=== PATIENT | male | born 1950 | race Hispanic/Latino ===

== ENCOUNTER 2022-07-02 16:43 | Emergency (ER) | payer MEDICARE, OTHER ==
[~2022-07-02] VITALS: Ht 172.7 cm; Wt 83.9 kg
[~2022-07-02 16:43] MED LIST: AMLODIPINE BESY10 MG PO; ARICEPT5 MG PO; ATORVASTATIN CA40 MG PO; CARVEDILOL3.125 MG PO; CETIRIZINE HCL10 MG PEG; COREG3.125 MG PO; CYMBALTA30 MG PO; ETOMIDATE 2 MG/ML 10 ML INJ IV ONE; FINASTERIDE5 MG PO; GLIMEPIRIDE2 MG PO; LEVOFLOXACIN500 MG PO; LISINOPRIL10 MG PO; LOSARTAN POTASS50 MG PO; METFORMIN HCL500 MG PO; NORCO 10-325 T1 EACH PO; NORVASC5 MG PO; NOVOLIN 70100 UNITS/ SQ; NOVOLOG100 UNITS1; OMEPRAZOLE40 MG PO; PRAVASTATIN SOD10 MG PO; PROMETHAZINE HC25 M1 PO; SYMBICORT 16010.2 GM INH; TAMSULOSIN HCL0.4 MG PO; TOUJEO 300 UNITS/ML; ZOFRAN ODT4 MG PO
[2022-07-02] MEDS ORDERED: HYDRALAZINE HCL 20 MG/ML VIAL IV PRN (16:45)
[2022-07-02] MEDS ORDERED: NICARDIPINE 20MG/200ML PREMIX 200 ML ONE (17:29)
[2022-07-02] MEDS ORDERED: ROCURONIUM BROMIDE 1 ML IV ONE ×2 (17:29→17:34)
[2022-07-02] MEDS ORDERED: MANNITOL 25% 12.5GM/50 ML VIAL IV PRN (17:30)
[2022-07-02 17:42] LABS: BASOPHILS # (AUTO) 0.1 (0.0-0.1); BASOPHILS % 0.5 % (0.0-1.0); EOSINOPHILS # (AUTO) 0.8 (0.0-0.4); EOSINOPHILS % 4.2 % (0.0-6.0); HEMATOCRIT 44.9 % (38.2-49.6); HEMOGLOBIN 14.6 g/dL (14.0-18.0); LYMPHOCYTES # (AUTO) 3.8 (1.0-3.2); LYMPHOCYTES % 19.9 % (18.0-39.1); MEAN CORPUSCULAR HEMOGLOBIN 28.5 pg (28-32); MEAN CORPUSCULAR HGB CONC 32.5 g/dL (31-35); MEAN CORPUSCULAR VOLUME 87.5 fL (81-99); MONOCYTES # (AUTO) 1.3 (0.2-0.8); NEUTROPHILS # (AUTO) 12.8 (2.1-6.9); NEUTROPHILS % 67.7 % (38.7-80.0); PLATELET COUNT 310 x10e3/uL (140-360); RED BLOOD COUNT 5.13 x10e6/uL (4.3-5.7)
[2022-07-02] MEDS ORDERED: MANNITOL 20% 500ML 500 ML IV ONE ×2 (17:45→18:30)
[2022-07-02] MEDS ORDERED: NICARDIPINE 20MG/200ML PREMIX 200 ML IV SCH (17:45)
[2022-07-02 17:54] LABS: ALBUMIN 3.8 g/dL (3.5-5.0); ANION GAP 16.4 mmol/L (8-16); CALCIUM 9.4 mg/dL (8.4-10.2); CREATININE, SERUM 1.89 mg/dL (0.72-1.25); POTASSIUM 4.4 mmol/L (3.5-5.1)
[2022-07-02 18:08] LABS: CREATINE KINASE MB 1.7 ng/mL (0-5.0)
[2022-07-02 18:31] LABS: ABG PCO2 49 mmHg (35-45); ABG PH 7.33 (7.35-7.45)
[2022-07-02 18:32] LABS: ABG HCO3 26 mmol/L (22-26); ABG PO2 443 mmHg (80-105); ABG TCO2 27
[2022-07-02] MEDS ORDERED: MANNITOL 20% 500ML 500 ML IV SCH (19:00)
[2022-07-02] MEDS ORDERED: ETOMIDATE 2 MG/ML 10 ML INJ IV STA (19:07)
[2022-07-02] MEDS ORDERED: ROCURONIUM BROMIDE 10 MG/ML 5ML VIAL IV ONE (19:15)
[2022-07-02] MEDS ORDERED: LIDOCAINE HCL 2% 100 MG/5 ML IV ONE (19:15)
== END 2022-07-02 19:20 | disposition other institution (70) ==
LOC: ER 16:46
DX: I60.9 Nontraumatic subarachnoid hemorrhage, unspecified (principal); I10 Essential (primary) hypertension; R51.9 Headache, unspecified; R53.1 Weakness; E78.5 Hyperlipidemia, unspecified; K21.9 Gastro-esophageal reflux disease without esophagitis; I25.10 Atherosclerotic heart disease of native coronary artery without angina pectoris; Z95.1 Presence of aortocoronary bypass graft
CPT/HCPCS: 31500; 36415; 36600; 51700; 70450; 71045; 80053; 82550; 82553; 82805; 82948; 84484; 85025; 93005; 94003; 99285

== ENCOUNTER 2022-08-06 15:44 | Observation (INO) | payer MEDICARE ==
[~2022-08-06] VITALS: Ht 175.3 cm; Wt 81.2 kg
[~2022-08-06 15:44] MED LIST changes: -ETOMIDATE 2 MG/ML 10 ML INJ IV ONE
[2022-08-06] MEDS ORDERED: ONDANSETRON HCL INJ 2MG/ML 2ML 2 MG/ML VIAL IV STA (16:11)
[2022-08-06] MEDS ORDERED: FAMOTIDINE 20 MG/2 ML VIAL IV STA (16:11)
[2022-08-06 16:22] LABS: BASOPHILS % 0.2 % (0.0-1.0); EOSINOPHILS # (AUTO) 0.1 (0.0-0.4); EOSINOPHILS % 1.3 % (0.0-6.0); HEMATOCRIT 38.8 % (38.2-49.6); HEMOGLOBIN 13.2 g/dL (14.0-18.0); LYMPHOCYTES # (AUTO) 2.3 (1.0-3.2); MEAN CORPUSCULAR HEMOGLOBIN 29.9 pg (28-32); MEAN CORPUSCULAR VOLUME 87.8 fL (81-99); MONOCYTES % 9.6 % (4.4-11.3); NEUTROPHILS # (AUTO) 7.4 (2.1-6.9); NEUTROPHILS % 67.5 % (38.7-80.0); PLATELET COUNT 157 x10e3/uL (140-360); RED BLOOD COUNT 4.42 x10e6/uL (4.3-5.7)
[2022-08-06] MEDS ORDERED: SODIUM CHLORIDE 0.9% 1000ML 1,000 ML ONE (16:34)
[2022-08-06 16:35] LABS: INR 1.21; PROTHROMBIN TIME 15.8 seconds (11.9-14.5)
[2022-08-06 16:36] LABS: PARTIAL THROMBOPLASTIN TIME 37.8 seconds (23.8-35.5)
[2022-08-06 16:44] LABS: ALANINE AMINOTRANSFERASE 14 IU/L (0-55); ALBUMIN 3.5 g/dL (3.5-5.0); ALBUMIN/GLOBULIN RATIO 1.1 (0.8-2.0); ALKALINE PHOSPHATASE 118 IU/L (40-150); ANION GAP 14.8 mmol/L (8-16); BLOOD UREA NITROGEN 20 mg/dL (7-26); BUN/CREATININE RATIO 13 (6-25); CARBON DIOXIDE 21 mmol/L (22-29); CHLORIDE 106 mmol/L (98-107); CREATINE KINASE 49 IU/L (30-200); GLUCOSE 118 mg/dL (74-118); LIPASE 13 U/L (8-78); POTASSIUM 3.8 mmol/L (3.5-5.1); SODIUM 138 mmol/L (136-145)
[2022-08-06] MEDS ORDERED: SODIUM CHLORIDE 0.9% 1000ML 1,000 ML IV ONE (16:45)
[2022-08-06] MEDS ORDERED: ACETAMINOPHEN 325 MG TAB PO ONE (16:45)
[2022-08-06 17:25] LABS: CLARITY,URINE CLOUDY (CLEAR); COLOR,URINE YELLOW (YELLOW); KETONES,URINE NEGATIVE (NEGATIVE); LEUKOCYTE ESTERASE ,URINE SMALL (NEGATIVE); NITRITE,URINE POSITIVE (NEGATIVE); PROTEIN,URINE DIPSTICK 2+ (NEGATIVE); URINE UROBILINOGEN 1 mg/dL (0.2 - 1)
[2022-08-06] MEDS ORDERED: ONDANSETRON HCL INJ 2MG/ML 2ML 2 MG/ML VIAL IV PRN (17:30)
[2022-08-06] MEDS ORDERED: Morphine 2mg Syringe 2 MG/ML SYR IV PRN (17:30)
[2022-08-06 17:36] LABS: BACTERIA,URINE MANY /HPF
[2022-08-06 17:39] VITALS: PULSE 82; RESP 20; O2SAT 95
[2022-08-06] MEDS: SODIUM CHLORIDE 0.9% 1000ML 1,000 ML IV SCH (18:52)
[2022-08-06] MEDS ORDERED: CLONIDINE HCL 0.2 MG TAB PO ONE (19:15)
[2022-08-06 19:20] VITALS: PULSE 55; RESP 16; O2SAT 99
[2022-08-06] MEDS ORDERED: CARVEDILOL25 MG PO (20:13)
[2022-08-06] MEDS ORDERED: MELATONIN3 MG PO (20:13)
[2022-08-06] MEDS ORDERED: ARICEPT5 MG PO (20:13)
[2022-08-06] MEDS ORDERED: FINASTERIDE5 MG PO (20:13)
[2022-08-06] MEDS ORDERED: CLONIDINE HCL0.1 MG PO (20:13)
[2022-08-06] MEDS ORDERED: CARBIDOPA-LEVO1 EAC1 PO (20:13)
[2022-08-06] MEDS ORDERED: SENNA8.6 MG PO (20:13)
[2022-08-06] MEDS ORDERED: HYDRALAZINE HC100 MG PO (20:13)
[2022-08-06] MEDS ORDERED: DOCUSATE SODIU100 MG PO (20:13)
[2022-08-06] MEDS ORDERED: LOSARTAN POTASS25 MG PO (20:13)
[2022-08-06 21:00] VITALS: BP 167/51; PULSE 51; RESP 18; TEMP 98; O2SAT 98
[2022-08-06 21:14] VITALS: BP 167/51; PULSE 51; RESP 18; TEMP 98; O2SAT 98
[2022-08-07] VITALS (8 sets, daily range): BP systolic 136–178; BP diastolic 46–77; PULSE 54–71; RESP 16–18; TEMP 97.2–98.8; O2SAT 98–100
[2022-08-07] MEDS ORDERED: MAGNESIUM/ALUMINUM/SIMETHICONE 30 ML UDC PO PRN (04:15)
[2022-08-07] MEDS ORDERED: DEXTROSE 50% SYRINGE 50 ML IV PRN (04:15)
[2022-08-07] MEDS ORDERED: HYDRALAZINE HCL 20 MG/ML VIAL IV PRN (04:15)
[2022-08-07] MEDS ORDERED: MELATONIN 3 MG TAB PO PRN (04:15)
[2022-08-07] MEDS ORDERED: GUAIFENESIN/DEXTROMETHORPHAN LIQD 5 ML UDC PO PRN (04:15)
[2022-08-07] MEDS ORDERED: ACETAMINOPHEN 325 MG TAB PO PRN (04:15)
[2022-08-07] MEDS ORDERED: Morphine 2mg Syringe 2 MG/ML SYR IV PRN (04:15)
[2022-08-07] MEDS ORDERED: INSULIN GLARGINE 100 UNITS/ML VIAL SQ ONE (04:15)
[2022-08-07 04:55] LABS: BASOPHILS % 0.4 % (0.0-1.0); EOSINOPHILS # (AUTO) 0.2 (0.0-0.4); EOSINOPHILS % 2.2 % (0.0-6.0); HEMATOCRIT 35.1 % (38.2-49.6); HEMOGLOBIN 11.7 g/dL (14.0-18.0); LYMPHOCYTES # (AUTO) 3.1 (1.0-3.2); LYMPHOCYTES % 29.1 % (18.0-39.1); MEAN CORPUSCULAR HEMOGLOBIN 29.7 pg (28-32); MEAN CORPUSCULAR HGB CONC 33.3 g/dL (31-35); MEAN CORPUSCULAR VOLUME 89.1 fL (81-99); MONOCYTES # (AUTO) 1.1 (0.2-0.8); MONOCYTES % 10.6 % (4.4-11.3); NEUTROPHILS # (AUTO) 6.1 (2.1-6.9); NEUTROPHILS % 57.4 % (38.7-80.0); PLATELET COUNT 155 x10e3/uL (140-360); RED BLOOD COUNT 3.94 x10e6/uL (4.3-5.7); RED CELL DISTRIBUTION WIDTH 16.4 % (11.7-14.4)
[2022-08-07 05:19] LABS: ANION GAP 11.4 mmol/L (8-16); CALCIUM 8.2 mg/dL (8.4-10.2); CREATININE, SERUM 1.25 mg/dL (0.72-1.25); POTASSIUM 3.4 mmol/L (3.5-5.1)
[2022-08-07] MEDS: HYDRALAZINE HCL 100 MG TABLET PO SCH ×3 (05:34→21:24)
[2022-08-07] MEDS: SODIUM CHLORIDE 0.9% 1000ML 1,000 ML IV SCH ×2 (05:35→14:07)
[2022-08-07] MEDS: INSULIN REGULAR, HUMAN 100 UNIT/1 ML SQ SCH ×4 (07:30→21:42)
[2022-08-07] MEDS: MULTIVITAMINS/MINERALS TAB PO SCH (08:54)
[2022-08-07] MEDS: CARBIDOPA/LEVODOPA 25/100 TAB PO SCH ×3 (08:54→21:25)
[2022-08-07] MEDS: DONEPEZIL HCL 5 MG TAB PO SCH (08:54)
[2022-08-07] MEDS: LOSARTAN POTASSIUM 100 MG TAB PO SCH (08:54)
[2022-08-07] MEDS: FINASTERIDE 5 MG TAB PO SCH (08:54)
[2022-08-07] MEDS: TAMSULOSIN HCL 0.4 MG CAP PO SCH (08:54)
[2022-08-07] MEDS: SENNOSIDES 8.6 MG TAB PO SCH (08:55)
[2022-08-07] MEDS: AMLODIPINE BESYLATE 10 MG TAB PO SCH (08:55)
[2022-08-07] MEDS: CARVEDILOL 12.5 MG TAB PO SCH ×2 (08:55→17:10)
[2022-08-07] MEDS: DOCUSATE SODIUM 100 MG CAP PO SCH ×2 (08:56→17:00)
[2022-08-07] MEDS: CLONIDINE HCL 0.1 MG TAB PO SCH ×2 (11:23→17:09)
[2022-08-07] MEDS ORDERED: ATORVASTATIN 40 MG TAB PO SCH (21:00)
[2022-08-07] MEDS ORDERED: MELATONIN 3 MG TAB PO SCH (21:00)
[2022-08-07] MEDS ORDERED: INSULIN GLARGINE 100 UNITS/ML VIAL SQ SCH (21:00)
[2022-08-08 01:18] VITALS: BP 141/48; PULSE 60; RESP 20; TEMP 97.4; O2SAT 100
[2022-08-08] MEDS: SODIUM CHLORIDE 0.9% 1000ML 1,000 ML IV SCH ×3 (01:30→12:07)
[2022-08-08 05:29] VITALS: BP 166/61; PULSE 58; RESP 20; TEMP 97.3; O2SAT 97
[2022-08-08] MEDS: HYDRALAZINE HCL 100 MG TABLET PO SCH ×2 (06:00→14:29)
[2022-08-08 06:50] LABS: ANION GAP 12.1 mmol/L (8-16); CALCIUM 8.1 mg/dL (8.4-10.2); CREATININE, SERUM 1.13 mg/dL (0.72-1.25); MAGNESIUM 1.6 MG/DL (1.3-2.1); POTASSIUM 3.1 mmol/L (3.5-5.1)
[2022-08-08 07:12] LABS: THYROID STIMULATING HORMONE 0.301 uIU/mL (0.350-4.940)
[2022-08-08] MEDS: INSULIN REGULAR, HUMAN 100 UNIT/1 ML SQ SCH ×3 (07:30→16:30)
[2022-08-08 08:12] VITALS: BP 177/65; PULSE 63; RESP 18; TEMP 97.6; O2SAT 100
[2022-08-08] MEDS: DONEPEZIL HCL 5 MG TAB PO SCH (08:58)
[2022-08-08] MEDS: AMLODIPINE BESYLATE 10 MG TAB PO SCH (08:58)
[2022-08-08] MEDS: TAMSULOSIN HCL 0.4 MG CAP PO SCH (08:58)
[2022-08-08] MEDS: FINASTERIDE 5 MG TAB PO SCH (08:58)
[2022-08-08] MEDS: CARBIDOPA/LEVODOPA 25/100 TAB PO SCH ×2 (08:59→14:29)
[2022-08-08] MEDS: MULTIVITAMINS/MINERALS TAB PO SCH (08:59)
[2022-08-08] MEDS: LOSARTAN POTASSIUM 100 MG TAB PO SCH (08:59)
[2022-08-08] MEDS: CLONIDINE HCL 0.1 MG TAB PO SCH ×2 (08:59→16:59)
[2022-08-08] MEDS: DOCUSATE SODIUM 100 MG CAP PO SCH ×2 (09:00→17:00)
[2022-08-08] MEDS: CARVEDILOL 12.5 MG TAB PO SCH ×2 (09:00→17:00)
[2022-08-08] MEDS: SENNOSIDES 8.6 MG TAB PO SCH (09:00)
[2022-08-08 09:23] VITALS: BP 177/65; PULSE 63; RESP 18; TEMP 97.6; O2SAT 100
[2022-08-08 12:58] VITALS: BP 165/55; PULSE 61; RESP 18; TEMP 98.6; O2SAT 99
[2022-08-08] MEDS ORDERED: POTASSIUM CHLORIDE 20 MEQ TAB CR PO STA (14:19)
[2022-08-08] MEDS ORDERED: CEFPODOXIME PR200 MG PO (14:25)
[2022-08-08 17:10] VITALS: BP 160/60; PULSE 63; RESP 18; TEMP 98.1; O2SAT 100
== END 2022-08-08 19:47 | disposition home or self-care (01) ==
LOC: ER 15:50 → ERHOLD 17:28 → INTOOBSV 17:28 → MED/SURG3 20:44
PROVIDERS: ADMIT Internal Medicine; ATTEND Internal Medicine
DX: N39.0 Urinary tract infection, site not specified (principal); B96.1 Klebsiella pneumoniae [K. pneumoniae] as the cause of diseases classified elsewhere; K52.9 Noninfective gastroenteritis and colitis, unspecified; R53.81 Other malaise; N17.9 Acute kidney failure, unspecified; I10 Essential (primary) hypertension; E78.5 Hyperlipidemia, unspecified; K21.9 Gastro-esophageal reflux disease without esophagitis; G20 Parkinson's disease; F02.80 Dementia in other diseases classified elsewhere, unspecified severity, without behavioral disturbance, psychotic disturbance, mood disturbance, and anxiety; I25.10 Atherosclerotic heart disease of native coronary artery without angina pectoris; Z95.1 Presence of aortocoronary bypass graft
CPT/HCPCS: 0223U; 36415 ×3; 51700; 71045 ×2; 80048 ×2; 80053; 81001; 82550 ×2; 82553 ×2; 82948 ×2; 83690; 83735; 83880; 84443; 84484 ×2; 85025 ×2; 85610; 85730; 87040; 87086; 87186; 93005; 94799 ×2; 97116; 97162; 97530; 99284; G0378 ×3; J0696 ×3; J2405 ×2; J7030 ×3

== ENCOUNTER 2022-08-16 19:27 | Emergency (ER) | payer MEDICARE ==
[~2022-08-16] VITALS: Ht 175.3 cm; Wt 81.2 kg
[~2022-08-16 19:27] MED LIST changes: +CARBIDOPA-LEVO1 EAC1 PO; +CARVEDILOL25 MG PO; +CEFPODOXIME PR200 MG PO; +CLONIDINE HCL0.1 MG PO; +DOCUSATE SODIU100 MG PO; +HYDRALAZINE HC100 MG PO; +LOSARTAN POTASS25 MG PO; +MELATONIN3 MG PO; +SENNA8.6 MG PO
[2022-08-16] MEDS ORDERED: ONDANSETRON HCL 4 MG ORAL DISINTEGRATING TAB PO ONE (19:45)
[2022-08-16] MEDS ORDERED: ONDANSETRON HCL INJ 2MG/ML 2ML 2 MG/ML VIAL IV STA (20:04)
[2022-08-16] MEDS ORDERED: SODIUM CHLORIDE 0.9% 1000ML 1,000 ML IV ONE (20:15)
[2022-08-16 20:26] LABS: BASOPHILS % 0.5 % (0.0-1.0); EOSINOPHILS # (AUTO) 0.2 (0.0-0.4); EOSINOPHILS % 2.5 % (0.0-6.0); HEMATOCRIT 39.6 % (38.2-49.6); HEMOGLOBIN 13.6 g/dL (14.0-18.0); LYMPHOCYTES # (AUTO) 2.1 (1.0-3.2); LYMPHOCYTES % 26.8 % (18.0-39.1); MEAN CORPUSCULAR HEMOGLOBIN 30.1 pg (28-32); MEAN CORPUSCULAR HGB CONC 34.3 g/dL (31-35); MEAN CORPUSCULAR VOLUME 87.6 fL (81-99); MONOCYTES # (AUTO) 0.7 (0.2-0.8); MONOCYTES % 8.7 % (4.4-11.3); NEUTROPHILS # (AUTO) 4.7 (2.1-6.9); NEUTROPHILS % 60.8 % (38.7-80.0); PLATELET COUNT 231 x10e3/uL (140-360); RED BLOOD COUNT 4.52 x10e6/uL (4.3-5.7); RED CELL DISTRIBUTION WIDTH 16.8 % (11.7-14.4)
[2022-08-16 20:55] LABS: ALBUMIN 3.7 g/dL (3.5-5.0); ALBUMIN/GLOBULIN RATIO 1.1 (0.8-2.0); ANION GAP 13.8 mmol/L (8-16); CALCIUM 9.1 mg/dL (8.4-10.2); CREATININE, SERUM 1.48 mg/dL (0.72-1.25); POTASSIUM 3.8 mmol/L (3.5-5.1)
[2022-08-16 21:01] LABS: CREATINE KINASE MB 10.5 ng/mL (0-5.0)
[2022-08-16] MEDS ORDERED: IOPAMIDOL 370 MG/ML 100 ML INFUS..BTL INJ ONE (21:10)
[2022-08-16] MEDS ORDERED: CLONIDINE HCL 0.1 MG TAB PO ONE (22:00)
[2022-08-16] MEDS ORDERED: HYDRALAZINE HCL 20 MG/ML VIAL IV STA (22:54)
[2022-08-17 00:02] LABS: CLARITY,URINE CLEAR (CLEAR); COLOR,URINE YELLOW (YELLOW); KETONES,URINE TRACE (NEGATIVE); LEUKOCYTE ESTERASE ,URINE NEGATIVE (NEGATIVE); NITRITE,URINE NEGATIVE (NEGATIVE); PROTEIN,URINE DIPSTICK 2+ (NEGATIVE); URINE UROBILINOGEN 1 mg/dL (0.2 - 1)
[2022-08-17 00:05] LABS: AMORPHOUS SEDIMENT,URINE MODERATE (FEW); BACTERIA,URINE FEW /HPF; EPITHELIAL CELLS,URINE RARE /LPF; RBC,URINE 0-5 /HPF (0-5); WBC,URINE (MAN) 0-5 /HPF (0-5)
[2022-08-17] MEDS: NICARDIPINE 20MG/200ML PREMIX 200 ML IV SCH ×2 (01:00→01:29)
[2022-08-17 03:13] VITALS: BP 182/74; PULSE 62; RESP 16; TEMP 98.5; O2SAT 100
== END 2022-08-17 03:05 | disposition other institution (70) ==
LOC: ER 19:33
DX: R11.2 Nausea with vomiting, unspecified (principal); I71.40 Abdominal aortic aneurysm, without rupture, unspecified; I16.1 Hypertensive emergency; I10 Essential (primary) hypertension; Z20.822 Contact with and (suspected) exposure to COVID-19; E11.65 Type 2 diabetes mellitus with hyperglycemia; E78.5 Hyperlipidemia, unspecified; I25.10 Atherosclerotic heart disease of native coronary artery without angina pectoris; K21.9 Gastro-esophageal reflux disease without esophagitis; R94.31 Abnormal electrocardiogram [ECG] [EKG]; Z95.1 Presence of aortocoronary bypass graft
CPT/HCPCS: 36415; 70450; 74177; 80053; 81001; 82550; 82553; 84484; 85025; 93005; 99284; C9113; J0360; J2405; J7030; Q9967; U0002

== ENCOUNTER 2024-05-16 12:03 | Observation (INO) | payer MEDICARE ==
[~2024-05-16] VITALS: Ht 175.3 cm; Wt 90.2 kg
[2024-05-16] MEDS ORDERED: SODIUM CHLORIDE FLUSH 10 ML SYR IV PRN (12:30)
[2024-05-16 12:40] LABS: BASOPHILS # (AUTO) 0.1 (0.0-0.1); BASOPHILS % 0.7 % (0.0-1.0); EOSINOPHILS # (AUTO) 0.3 (0.0-0.4); EOSINOPHILS % 3.4 % (0.0-6.0); HEMATOCRIT 37.9 % (38.2-49.6); LYMPHOCYTES # (AUTO) 1.6 (1.0-3.2); LYMPHOCYTES % 18.4 % (18.0-39.1); MEAN CORPUSCULAR HEMOGLOBIN 34.4 pg (28-32); MEAN CORPUSCULAR HGB CONC 34.3 g/dL (31-35); MEAN CORPUSCULAR VOLUME 100.3 fL (81-99); MONOCYTES # (AUTO) 0.8 (0.2-0.8); NEUTROPHILS # (AUTO) 5.9 (2.1-6.9); NEUTROPHILS % 67.2 % (38.7-80.0); PLATELET COUNT 187 x10e3/uL (140-360); RED BLOOD COUNT 3.78 x10e6/uL (4.3-5.7); RED CELL DISTRIBUTION WIDTH 13.2 % (11.7-14.4); WHITE BLOOD COUNT 8.71 x10e3/uL (4.8-10.8)
[2024-05-16 12:55] LABS: CORONAVIRUS COVID-19 AG NEGATIVE (NEGATIVE); INFLUENZA A AG NEGATIVE (NEGATIVE); INFLUENZA B AG NEGATIVE (NEGATIVE)
[2024-05-16 13:07] LABS: ALBUMIN 3.8 g/dL (3.5-5.0); ALBUMIN/GLOBULIN RATIO 1.2 (0.8-2.0); ANION GAP 14.1 mmol/L (8-16); BILIRUBIN,TOTAL 0.6 mg/dL (0.2-1.2); CALCIUM 8.5 mg/dL (8.4-10.2); CREATININE, SERUM 2.7 mg/dL (0.72-1.25); POTASSIUM 4.1 mmol/L (3.5-5.1); TOTAL PROTEIN 6.9 g/dL (6.5-8.1)
[2024-05-16 13:13] LABS: TROPONIN I 0.005 ng/mL (0-0.300)
[2024-05-16 13:19] LABS: BILIRUBIN,URINE NEGATIVE (NEGATIVE); CLARITY,URINE CLEAR (CLEAR); COLOR,URINE YELLOW (YELLOW); GLUCOSE, URINE 500 (NEGATIVE); KETONES,URINE NEGATIVE (NEGATIVE); LEUKOCYTE ESTERASE ,URINE NEGATIVE (NEGATIVE); NITRITE,URINE NEGATIVE (NEGATIVE); PH,URINE 6 (5 - 7); PROTEIN,URINE DIPSTICK >=300 (NEGATIVE); URINE UROBILINOGEN 0.2 mg/dL (0.2 - 1)
[2024-05-16 13:51] LABS: BACTERIA,URINE FEW /HPF; EPITHELIAL CELLS,URINE FEW /LPF; RBC,URINE 0-5 /HPF (0-5); WBC,URINE (MAN) 0-5 /HPF (0-5)
[2024-05-16] MEDS ORDERED: ONDANSETRON HCL INJ 2MG/ML 2ML 2 MG/ML VIAL IV PRN (15:30)
[2024-05-16] MEDS ORDERED: SODIUM CHLORIDE FLUSH 10 ML SYR INJ PRN (15:30)
[2024-05-16 15:34] VITALS: PULSE 79; RESP 16; TEMP 98.8
[2024-05-16] MEDS: SODIUM CHLORIDE 0.9% 1000ML 1,000 ML IV ONE (15:46)
[2024-05-16] MEDS: METRONIDAZOLE 500MG/NS 100ML 100 ML IV SCH (15:47)
[2024-05-16] MEDS: LEVOFLOXACIN 750MG/D5W 150ML 150 ML IV SCH (15:47)
[2024-05-16 18:11] VITALS: BP 157/83; PULSE 67; RESP 18; TEMP 97.5; O2SAT 97
[2024-05-16 18:17] VITALS: BP 157/83; PULSE 67; RESP 18; TEMP 97.5; O2SAT 97
[2024-05-16 20:00] VITALS: BP 166/69; PULSE 64; RESP 18; TEMP 97.7; O2SAT 99
[2024-05-16 22:00] VITALS: BP 166/69; PULSE 64; RESP 18; TEMP 97.7; O2SAT 99
[2024-05-17] VITALS (9 sets, daily range): BP systolic 150–173; BP diastolic 53–75; PULSE 63–76; RESP 18–20; TEMP 97.3–98.7; O2SAT 98–100
[2024-05-17 05:40] LABS: BASOPHILS % 0.5 % (0.0-1.0); EOSINOPHILS # (AUTO) 0.3 (0.0-0.4); EOSINOPHILS % 3.7 % (0.0-6.0); HEMATOCRIT 34.6 % (38.2-49.6); HEMOGLOBIN 11.8 g/dL (14.0-18.0); LYMPHOCYTES # (AUTO) 1.5 (1.0-3.2); LYMPHOCYTES % 17.6 % (18.0-39.1); MEAN CORPUSCULAR HEMOGLOBIN 34.4 pg (28-32); MEAN CORPUSCULAR HGB CONC 34.1 g/dL (31-35); MEAN CORPUSCULAR VOLUME 100.9 fL (81-99); MONOCYTES # (AUTO) 0.8 (0.2-0.8); MONOCYTES % 9.4 % (4.4-11.3); NEUTROPHILS # (AUTO) 5.8 (2.1-6.9); NEUTROPHILS % 67.6 % (38.7-80.0); PLATELET COUNT 164 x10e3/uL (140-360); RED BLOOD COUNT 3.43 x10e6/uL (4.3-5.7); RED CELL DISTRIBUTION WIDTH 13.2 % (11.7-14.4); WHITE BLOOD COUNT 8.58 x10e3/uL (4.8-10.8)
[2024-05-17 06:04] LABS: ALBUMIN 3.1 g/dL (3.5-5.0); ALBUMIN/GLOBULIN RATIO 1.1 (0.8-2.0); ANION GAP 12.7 mmol/L (8-16); BILIRUBIN,TOTAL 0.5 mg/dL (0.2-1.2); CREATININE, SERUM 2.61 mg/dL (0.72-1.25); POTASSIUM 3.7 mmol/L (3.5-5.1); TOTAL PROTEIN 5.8 g/dL (6.5-8.1)
[2024-05-17] MEDS ORDERED: ASPIRIN81 MG PO (17:58)
[2024-05-17] MEDS ORDERED: CLOPIDOGREL75 MG PO (17:58)
[2024-05-17] MEDS ORDERED: PROTONIX20 MG PO (17:58)
[2024-05-17] MEDS ORDERED: FUROSEMIDE40 MG PO (17:58)
[2024-05-18] VITALS: BP 159/65; PULSE 72; RESP 20; TEMP 98.1; O2SAT 97
[2024-05-18 04:00] VITALS: BP 200/76; PULSE 75; RESP 20; TEMP 98; O2SAT 100
[2024-05-18 05:47] VITALS: BP 165/57; PULSE 73; O2SAT 98
[2024-05-18 08:11] VITALS: BP 173/77; RESP 18; TEMP 97.9; O2SAT 100
[2024-05-18] MEDS: ACETAMINOPHEN 325 MG TAB PO PRN (15:10)
[2024-05-18] MEDS: CARVEDILOL 12.5 MG TAB PO SCH (16:58)
[2024-05-18] MEDS: CLONIDINE HCL 0.1 MG TAB PO SCH (16:59)
[2024-05-18] MEDS: CARBIDOPA/LEVODOPA 25/100 TAB PO SCH (17:40)
[2024-05-18 20:00] VITALS: BP 131/46; PULSE 65; RESP 20; TEMP 98.6; O2SAT 99
[2024-05-18] MEDS ORDERED: CEFPODOXIME PR200 MG PO (21:00)
[2024-05-18] MEDS ORDERED: NIFEDIPINE ER30 M1 PO (21:02)
[2024-05-18] MEDS: ATORVASTATIN 40 MG TAB PO SCH (21:19)
[2024-05-19] MEDS ORDERED: PANTOPRAZOLE SODIUM 20 MG TABLET.DR PO SCH (09:00)
[2024-05-19] MEDS ORDERED: FUROSEMIDE 40 MG TAB PO SCH (09:00)
[2024-05-19] MEDS ORDERED: FINASTERIDE 5 MG TAB PO SCH (09:00)
[2024-05-19] MEDS ORDERED: DONEPEZIL HCL 5 MG TAB PO SCH (09:00)
[2024-05-19] MEDS ORDERED: CLOPIDOGREL BISULFATE 75 MG TAB PO SCH (09:00)
[2024-05-19] MEDS ORDERED: ASPIRIN 81 MG CHEW TAB PO SCH (09:00)
[2024-05-19] MEDS ORDERED: AMLODIPINE BESYLATE 10 MG TAB PO SCH (09:00)
== END 2024-05-19 | disposition home or self-care (01) ==
LOC: ER 12:10 → ERHOLD 15:28 → MED/SURG2 18:06
PROVIDERS: ADMIT Internal Medicine; ATTEND Internal Medicine
DX: J18.9 Pneumonia, unspecified organism (principal); R19.7 Diarrhea, unspecified; R11.2 Nausea with vomiting, unspecified; I12.9 Hypertensive chronic kidney disease with stage 1 through stage 4 chronic kidney disease, or unspecified chronic kidney disease; E11.22 Type 2 diabetes mellitus with diabetic chronic kidney disease; N18.30 Chronic kidney disease, stage 3 unspecified; I25.10 Atherosclerotic heart disease of native coronary artery without angina pectoris; Z95.1 Presence of aortocoronary bypass graft; E78.5 Hyperlipidemia, unspecified; N40.0 Benign prostatic hyperplasia without lower urinary tract symptoms; G20.A1 Parkinson's disease without dyskinesia, without mention of fluctuations; I71.40 Abdominal aortic aneurysm, without rupture, unspecified; Z11.52 Encounter for screening for COVID-19; Z79.899 Other long term (current) drug therapy; Z79.82 Long term (current) use of aspirin; Z79.02 Long term (current) use of antithrombotics/antiplatelets
CPT/HCPCS: 36415 ×2; 71046; 80053 ×2; 81001; 82948; 83690; 84484; 85025 ×2; 87428; 93005; 99284; G0378 ×3; J7030